=== PATIENT | male | born 1995 | race Caucasian/White ===

== ENCOUNTER 2018-10-24 09:54 | Emergency (ER) | payer SELFPAY ==
[2018-10-24 10:19] VITALS: BP 121/73
[2018-10-24] MEDS ORDERED: NACL 0.9% 1000 ML 1,000 ML IV ONE (11:08)
[2018-10-24] MEDS ORDERED: PEPCID IV ONE (11:08)
[2018-10-24] MEDS ORDERED: MORPHINE IV ONE (11:08)
--- NOTE | 2018-10-24 11:13 | Emergency Department Report ---
ED Abdominal Pain HPI - General Chief Complaint: Abdominal Pain Stated Complaint: N/V Time Seen by Provider: 10/24/18 10:53 Source: patient, EMS Mode of arrival: Ambulatory Limitations: No Limitations - History of Present Illness Initial Comments: Mr. Fernandes is a very pleasant 22-year-old male who presents with epigastric dull burning pain bloating after drinking alcohol yesterday. He woke up with nausea vomiting. He attempted to treat symptoms with an antacid without relief. Mild to moderate symptoms. Gradual onset this morning. Pain does not change with movement. Able to keep down fluids this morning. No significant past medical history. He drinks alcohol weekly basis. He smokes one joint of marijuana daily. Works construction. Otherwise healthy. No history of medical conditions or surgeries. MD Complaint: abdominal pain -: Gradual Location: epigastric Radiation: none Severity: mild Severity scale (0 -10): 5 Quality: fullness, dull Consistency: constant Improves With: nothing Worsens With: nothing Associated Symptoms: nausea, vomiting - Related Data Previous Rx's Medication Instructions Recorded Last Taken Type Famotidine 20 mg PO BID 30 Days #60 tablet 10/24/18 Unknown Rx Promethazine [Phenergan TAB] 25 mg PO Q6HR PRN #10 tab 10/24/18 Unknown Rx Allergies Allergy/AdvReac Type Severity Reaction Status Date / Time No Known Allergies Allergy Verified 10/24/18 11:31 ED Review of Systems ROS: Stated complaint: N/V Other details as noted in HPI Comment: All other systems reviewed and negative Constitutional: denies: fever, malaise Respiratory: denies: cough Cardiovascular: denies: chest pain ED Past Medical Hx - Past Medical History Previous Medical History?: No - Surgical History Past Surgical History?: No - Social History Smoking Status: Current Every Day Smoker Substance Use Type: Alcohol - Medications Home Medications: Home Medications Medication Instructions Recorded Confirmed Last Taken Type Famotidine 20 mg PO BID 30 Days #60 tablet 10/24/18 Unknown Rx Promethazine [Phenergan TAB] 25 mg PO Q6HR PRN #10 tab 10/24/18 Unknown Rx ED Physical Exam - General Limitations: No Limitations General appearance: alert, in no apparent distress - Head Head exam: Present: atraumatic, normocephalic - Eye Eye exam: Present: normal appearance - ENT ENT exam: Present: mucous membranes moist - Neck Neck exam: Present: normal inspection. Absent: tenderness, meningismus - Respiratory Respiratory exam: Present: normal lung sounds bilaterally. Absent: respiratory distress, wheezes, rales, rhonchi - Cardiovascular Cardiovascular Exam: Present: regular rate, normal rhythm, normal heart sounds. Absent: systolic murmur, diastolic murmur, rubs, gallop - GI/Abdominal GI/Abdominal exam: Present: soft, normal bowel sounds. Absent: distended, tenderness, guarding, rebound - Rectal Rectal exam: Present: deferred - Extremities Exam Extremities exam: Present: normal inspection - Back Exam Back exam: Present: normal inspection - Neurological Exam Neurological exam: Present: alert, oriented X3 - Psychiatric Psychiatric exam: Present: normal affect, normal mood - Skin Skin exam: Present: warm, dry, intact, normal color. Absent: rash ED Course Vital Signs 10/24/18 10/24/18 10:14 11:31 Temperature 97.4 F L Pulse Rate 55 L Respiratory 18 Rate Blood Pressure 121/73 O2 Sat by Pulse 98 Oximetry ED Medical Decision Making - Lab Data Result diagrams: 10/24/18 11:12 10/24/18 11:12 - Medical Decision Making Mr. Fernandes is a healthy young male who presents with epigastric pain after imbibing alcohol last night. He drank at least 3 cups of of liquor. I suspect alcoholic gastritis versus dyspepsia. No indication of peritonitis or bowel obstruction. Cannabis hyperemesis syndrome is a consideration. However patient does have severe vomiting at this time. I recommend A detox, withholding cannabis use every few months. Prescribed famotidine and promethazine. Also recommended alcohol use cessation for at least the next week. CBC chemistry notable for hemoconcentration and mild alcoholic ketoacidosis due to hypovolemia. Critical care attestation.: If time is entered above; I have spent that time in minutes in the direct care of this critically ill patient, excluding procedure time. ED Disposition Clinical Impression: Dehydration, Dyspepsia Disposition: - TO HOME OR SELFCARE Is pt being admited?: No Does the pt Need Aspirin: No Condition: Stable Instructions: Dehydration (ED), Acute Abdominal Pain (ED), Gastritis (ED) Prescriptions: Famotidine 20 mg PO BID 30 Days #60 tablet Promethazine [Phenergan TAB] 25 mg PO Q6HR PRN #10 tab PRN Reason: Nausea Referrals: [facility] [Outside] - 3-5 Days
[2018-10-24 11:28] LABS: Hematocrit 46.4 % (35.5-45.6); Hemoglobin 16.2 gm/dl (11.8-15.2); Mean Corpuscular HGB Conc 35 % (32-34); Mean Corpuscular Volume 92 fl (84-94); Platelet Count 202 K/mm3 (140-440); Red Blood Count 5.05 M/mm3 (3.65-5.03); Red Cell Distribution Width 13.1 % (13.2-15.2)
[2018-10-24 11:45] LABS: BUN/Creatinine Ratio 16; Blood Urea Nitrogen 13 mg/dL (9-20); Calcium 9.2 mg/dL (8.4-10.2); Hemolysis Index 9
[2018-10-24 11:48] LABS: Albumin 4.7 g/dL (3.9-5); Bilirubin,Direct 0.3 mg/dL (0-0.2)
[2018-10-24 15:07] LABS: Basophils % (Manual) 0 % (0.0-1.8); Eosinophils % (Manual) 0 % (0.0-4.3); Platelet Estimate Consistent w Auto; RBC Morphology Normal; Total Cells Counted 100
== END 2018-10-24 12:58 | disposition home or self-care (01) ==
LOC: ED 09:54
DX: E86.0 Dehydration (principal); R10.13 Epigastric pain; F17.200 Nicotine dependence, unspecified, uncomplicated; F12.10 Cannabis abuse, uncomplicated
CPT/HCPCS: 36415; 80048; 80076; 83690; 85007; 85025; 96374; 96375; 99284; J2270; J7030